=== PATIENT | male | born 1955 | race Caucasian/White ===

== ENCOUNTER 2017-12-31 05:03 | Inpatient (IN) | payer BC ==
[2017-12-19 07:43] VITALS: BMI 35.2
[~2017-12-31 05:03] MED LIST: BACITRACIN 15 GM TUBE TOPICAL OINTMENT TP ONE; BUPIVACAINE HCL/PF 0.5% (5MG/ML) 10 ML VIAL NR ONE
[2017-12-31] MEDS ORDERED: MIDAZOLAM HCL 2 MG/2 ML SINGLE DOSE VIAL ONE (07:44)
--- NOTE | 2017-12-31 08:02 | PN ---
Progress Note (short form) - Note Progress Note: NEUROSURGERY PRE-OP Symptoms unchanged from prior eval R LE symptoms R EHL/Inv 4+ B DP/PT 1+ at least For R L3-4 and L4-5 hemilaminectomies Incision marked Risks and benefits, procedure explained again BiPAP post-op
[2017-12-31] MEDS ORDERED: DEXAMETHASONE SOD PHOSPHATE 4 MG/1 ML VIAL ONE ×2 (08:04→10:12)
[2017-12-31] MEDS ORDERED: fentaNYL CITRATE 250 MCG/5 ML VIAL ONE (08:05)
[2017-12-31] MEDS ORDERED: PROPOFOL 20 ML ONE ×2 (08:06)
[2017-12-31] MEDS ORDERED: LIDOCAINE HCL/PF 2% SDV 5ML VIAL ONE (08:06)
[2017-12-31] MEDS ORDERED: ROCURONIUM BROMIDE 50 MG/5 ML VIAL ONE ×2 (08:07)
[2017-12-31] MEDS ORDERED: ceFAZolin SODIUM 1 GM VIAL ONE ×3 (08:08→20:57)
[2017-12-31] MEDS ORDERED: ceFAZolin SODIUM 1 GM VIAL IVPB ONE ×2 (08:10→14:30)
[2017-12-31] MEDS ORDERED: BACITRACIN 50,000 UNITS VIAL NR ONE (08:37)
[2017-12-31] MEDS ORDERED: THROMBIN (BOVINE) 5,000 UNIT VIAL TP ONE (08:37)
[2017-12-31] MEDS ORDERED: BACITRACIN 15 GM TUBE TOPICAL OINTMENT ONE (09:41)
[2017-12-31] MEDS ORDERED: BUPIVACAINE HCL/PF 0.5% (5MG/ML) 10 ML VIAL ONE (09:41)
[2017-12-31] MEDS ORDERED: BUPIVACAINE HCL/PF 0.5% (5MG/ML) 10 ML VIAL NR ONE (10:13)
[2017-12-31] MEDS ORDERED: NEOSTIGMINE METHYLSULFATE 0.5 MG/ML - 10 ML MDV ONE (10:13)
[2017-12-31] MEDS ORDERED: GLYCOPYRROLATE 0.2 MG/1 ML VIAL ONE (10:14)
--- NOTE | 2017-12-31 10:16 | OP ---
Operative Note - Note: Operative Date: 12/31/17 Pre-Operative Diagnosis: L4-5 > L3-4 stenosis; radiculopathy Operation: Partial R L3-4-5 hemilanectomies, medial facetectomies, foramenotomies; decompression of R L3, L4, L5 roots and thecal sax; microdissection Findings: Stenosis L4-5 > L3-4 Surgeon: Joseluis Zafar Testing Manager: Haim Means Anesthesiologist/COATING MACHINE OPERATOR HELPER: Yasmani Chapa Anesthesia: General Estimated Blood Loss (mls): 100 Operative Report Dictated: Yes
[2017-12-31] MEDS ORDERED: ONDANSETRON 4 MG/2 ML VIAL IVPUSH PRN ×2 (10:24→10:42)
[2017-12-31] MEDS ORDERED: BISACODYL 10 MG SUPP.RECT RC PRN (10:24)
[2017-12-31] MEDS ORDERED: ACETAMINOPHEN 325 MG TABLET (FP) PO PRN (10:24)
[2017-12-31] MEDS ORDERED: BACITRACIN 15 GM TUBE TOPICAL OINTMENT TP ONE (10:27)
[2017-12-31] MEDS ORDERED: diazePAM 5 MG TABLET PO SCH (10:30)
[2017-12-31] MEDS ORDERED: D5-1/2NS+20 MEQ KCL - 1,000 ML IV SCH (10:30)
[2017-12-31] MEDS ORDERED: D5-1/2NS+20 MEQ KCL - 20 MEQ/1,000 ML INFUS.BAG IV SCH (10:30)
--- NOTE | 2017-12-31 10:38 | SURG ---
Surgery [facility] General Manager Note [facility] General Manager: Haim Means PA-C Date of Service: 12/31/17 Diagnosis: L3-4 and L4-5 lumbar stenosis and radiculopathy Procedure: Partial L3-5 hemilaminectomies, medial facetectomies, decompression of L3-L4 roots and thecal sacs, microdissection I was present for the entirety of the operative procedure. For further detail, please refer to operative report.
[2017-12-31] MEDS ORDERED: PROMETHAZINE HCL 25 MG/1 ML VIAL IVPB PRN (10:42)
[2017-12-31] MEDS ORDERED: DEXAMETHASONE SOD PHOSPHATE 4 MG/1 ML VIAL IVPUSH PRN (10:42)
[2017-12-31] MEDS ORDERED: HYDROmorphone *PCA* 10MG/50ML DISP.SYRIN PCA SCH ×2 (10:45→12:27)
--- NOTE | 2017-12-31 11:08 | PN ---
Progress Note (short form) - Note Progress Note: NEUROSURGERY In PACU AF, VSS; O2 sat 99% CV- RR; Lung- CTA B; Abd- benign; Ext- no sign of DVT Motor- B LE 4+-5/5; Sensation- intact LT; DTR- intact Dressing C/D/I S/p R L3-4 and L4-5 hemilaminectomies Findings and pt condition d/w and pt IV abx ENERGY CONSERVATION TECHNICIAN for pain BiPAP, consulted Dr Anaya Tele
[2017-12-31 12:09] LABS: HEMATOCRIT 45.1 % (35.4-49); HEMOGLOBIN 14.4 GM/dL (11.7-16.9); MCH 30.3 pg (25.7-33.7); MCHC 31.9 g/dl (32.0-35.9); MEAN CELL VOLUME 95.1 fl (80-96); MEAN PLT VOLUME 9.5 fl (7.5-11.1); PLATELET COUNT 170 K/MM3 (134-434); RBC 4.74 M/mm3 (4.00-5.60); RDW 13.4 % (11.9-15.9); WHITE BLOOD COUNT 9.5 K/mm3 (4.0-10.0)
[2017-12-31 12:22] LABS: ANION GAP 5 MMOL/L (8-16); BLOOD UREA NITROGEN 16 mg/dL (7-18); CALCIUM 8.5 mg/dL (8.5-10.1); CHLORIDE 107 mmol/L (98-107); CO2 29 mmol/L (21-32); GLUCOSE,RANDOM 115 mg/dL (74-106); POTASSIUM 4.7 mmol/L (3.5-5.1); SODIUM 140 mmol/L (136-145)
--- NOTE | 2017-12-31 12:31 | CON.PULM ---
Consult Consult Specialty:: PULMONARY Referred by:: Dr. Zafar Reason for Consultation:: obstructive sleep apnea - History of Present Illness Chief Complaint: spinal stenosis History of Present Illness: 62yo male with h/o lumbar spinal stenosis, radiculopathy, obstructive sleep apnea who was admitted for an elective surgery now s/p Partial R L3-4-5 hemilanectomies, medial facetectomies, foramenotomies; decompression of R L3, L4 , L5 roots and thecal sax; microdissection. Called to see postop because of his history of DALIA. He was diagnosed about 25 years ago and he reports compliance with CPAP. His symptoms have improved with better sleep quality and less daytime somnolence. He has a full face mask. He does not know his settings. Currently without shortness of breath, cough or wheezing. No history of asthma or COPD. He is a former smoker but does not use any inhalers at home. - History Source History Provided By: Patient, Medical Record Limitations to Obtaining History: No Limitations - Past Medical History Pulmonary: Yes: Sleep Apnea - Alcohol/Substance Use Hx Alcohol Use: Yes (wine on weekends) - Smoking History Smoking history: Former smoker Have you smoked in the past 12 months: No If you are a former smoker, when did you quit?: smoked 40 years ago in school on and off Home Medications - Allergies Allergies/Adverse Reactions: Allergies Allergy/AdvReac Type Severity Reaction Status Date / Time No Known Allergies Allergy Verified 12/31/17 06:45 - Home Medications Home Medications: Ambulatory Orders Ascorbic Acid [Vitamin C] 1,000 mg PO DAILY 12/19/17 Cholecalciferol (Vitamin D3) [Vitamin D3 -] 1,000 unit PO DAILY 12/19/17 Gabapentin [Neurontin -] 300 mg PO HS 12/19/17 Ibuprofen [Motrin -] 400 mg PO PRN 12/19/17 Multivitamins [Tab-A-Vit -] 1 tab PO DAILY 12/19/17 Review of Systems - Review of Systems Constitutional: denies: Chills, Fever Eyes: denies: Recent Change in Vision HENT: denies: Nasal Congestion, Throat Pain Neck: denies: Stiffness, Tenderness Cardiovascular: denies: Chest Pain, Shortness of Breath Respiratory: denies: Cough, Hemoptysis, Wheezing Gastrointestinal: denies: Abdominal Pain, Nausea, Vomiting Genitourinary: denies: Dysuria, Hematuria Neurological: denies: Dizziness, Headache Endocrine: denies: Unexplained Weight Loss Physical Exam Vital Sings: Vital Signs Temperature 97.9 F 12/31/17 10:36 Pulse Rate 67 12/31/17 12:10 Respiratory Rate 18 12/31/17 12:10 Blood Pressure 125/73 12/31/17 12:10 O2 Sat by Pulse Oximetry (%) 98 12/31/17 12:10 Constitutional: Yes: Calm Eyes: Yes: Conjunctiva Clear, EOM Intact HENT: Yes: Atraumatic, Normocephalic Neck: Yes: Supple, Trachea Midline Cardiovascular: Yes: Regular Rate and Rhythm Respiratory: Yes: Regular, Diminished (decreased breath sounds at the bases) ...Clubbing: No Gastrointestinal: Yes: Normal Bowel Sounds, Soft. No: Tenderness Edema: No Neurological: Yes: Alert, Oriented Labs: CBC, BMP 12/31/17 11:45 12/31/17 11:45 Problem List - Problems (1) Lumbar spinal stenosis Code(s): M48.061 - SPINAL STENOSIS, LUMBAR REGION WITHOUT NEUROGENIC FLY (2) Obstructive sleep apnea Code(s): G47.33 - OBSTRUCTIVE SLEEP APNEA (ADULT) (PEDIATRIC) Assessment/Plan Lumbar Spinal Stenosis/Radiculopathy s/p Partial R L3-4-5 hemilanectomies/medial facetectomies/foramenotomies s/p Decompression of R L3, L4, L5 roots and thecal sax; microdissection Obstructive Sleep Apnea - pt does not know his settings but will start with CPAP 8cm H20 and titrate - pain control - incentive spirometry - DVT prophylaxis Thank you for this consult Shaun Anaya MD
[2017-12-31] MEDS: CEFAZOLIN 1 GM in DEXTROSE 5%-WATER - 50 ML IVPB SCH ×2 (17:19→22:04)
[2017-12-31] MEDS ORDERED: PT OWN MED DRAWER 7, Y5N ONE (18:53)
--- NOTE | 2017-12-31 19:44 | OP ---
DATE OF OPERATION: 12/31/2017 PREOPERATIVE DIAGNOSIS: Lumbar spinal stenosis with lateral recess and foraminal stenosis L4-L5 > L3-4 with right lower extremity radiculopathy. POSTOPERATIVE DIAGNOSIS: Lumbar spinal stenosis with lateral recess and foraminal stenosis L4-L5 > L3-4 with right lower extremity radiculopathy. ATTENDING SURGEON: Joseluis Zafar MD DECORATING CONSULTANT: STEVIE Stallings ANESTHESIA: General endotracheal. ANESTHESIOLOGIST: Yasmani Chapa MD ESTIMATED BLOOD LOSS: 100 mL. PROCEDURES: 1. Partial right L3, L4, and L5 laminectomies including medial facetectomy and foraminotomies at right L3-L4 and L4-L5 for decompression of thecal sac and right L3, L4, and L5 nerve roots. 2. Microsurgical dissection with operating microscope and microsurgical technique ([id number]). FINDINGS: 1. L4-L5 stenosis lateral recess and neural foramen greater than L3-L4. 2. Sensitive right-sided roots. INDICATIONS: The patient is a 62-year-old male with intractable lower back pain and right lower extremity radiculopathy. Because of intractable symptoms and failure of conservative treatment, he is here for right L3-L4 and L4-L5 decompression. The risks of procedure include, but are not limited to, bleeding, infection, dural tear with CSF leak, neurological injury, increase thromboembolic risk, and risks of general anesthesia. The patient understands the indications for the procedure, procedure in detail, risks and benefits, and alternatives for treatment of his lumbar condition, and wishes to proceed. No guarantees are given for a favorable outcome. PROCEDURE IN DETAIL: After the patient was taken to the operating room, he was placed in a supine position. After general anesthesia was induced and appropriate lines were placed, he was turned prone position on a Jermaine frame. All pressure points were checked and padded. Lumbar region was cleaned with alcohol and prepped with Betadine. A localizing x-ray was taken with the spinal needle at L4-L5 interspinous space. After position was verified, approximately a 2.5- to 3-inch incision was opened in the midline from L3 to the top of L5. Subperiosteal dissection was carried out on the right side only with periosteal elevator and monopolar electrocautery. A very deep exposure was encountered. The L3-L4 and L4-L5 facet joints were skeletonized and preserved. Two self-retaining retractors were inserted. A localizing x-ray was obtained with a clamp on the bottom of L3 lamina. After position was verified, partial right L3-L4 and L4-L5 laminectomy was carried out with high-speed pneumatic drill, angled curette, and Kerrison rongeur. Once again, the procedure was difficult because of the depth of exposure. Medial facetectomy was also carried out with angled curette and Kerrison rongeur as well as high-speed pneumatic drill. The underlying ligament was thickened at both L3- L4 and L4-L5, and it was resected with angled curette and Kerrison rongeur. The dura was under some pressure, and the nerve root was somewhat irritable to any bipolar electrocautery stimulation. The microscope was used for this portion of the procedure for both illumination and magnification. Microsurgical technique was utilized after hemostasis was obtained with bipolar electrocautery and thrombin sterile powder Gelfoam. The L3, L4, and L5 nerve roots were all decompressed in the neural foramen levels at L3-L4 and L4-L5 on the right. A dental tool was used to palpate the epidural space in the neural foramen after decompression was completed. The canal and neural foramen were felt to be open at these levels. Hemostasis was once again obtained with bipolar electrocautery, and a Valsalva maneuver was performed, and there was no CSF leak. Then 10 mL of 0.5% Marcaine was injected in the paraspinal muscles at this time. The wounds were washed and irrigated with antibiotic irrigation. At this point, the dorsal lumbar paraspinal musculature hemostasis was obtained with bipolar electrocautery. A layer of Surgicel was laid in the epidural space at L3-L4 and L4-L5 to cover the nerve roots and the dura. Dorsal lumbar fascia was then closed with 0 Vicryl suture. Subcutaneous fascia was closed with 3-0 Vicryl suture, and the skin was closed with 4-0 Vicryl running subcuticular suture. Steri- Strips and a sterile occlusive dressing was applied. The patient tolerated the procedure well and was moving bilateral lower extremities well. The patient received one dose of 2 g of Ancef prior to the incision. He was turned back supine and extubated. All needle and lap counts were correct. OR time-out procedure was followed. Vini [id number] MTDD
[2017-12-31] MEDS ORDERED: DEXTROSE 5%-WATER - 50 ML IVPB ONE (20:58)
[2017-12-31] MEDS ORDERED: GABAPENTIN 300 MG CAPSULE (FP) PO SCH (22:00)
[2017-12-31] MEDS: DOCUSATE SODIUM 100 MG CAPSULE (FP) PO SCH (22:05)
[2018-01-01] MEDS ORDERED: DEXTROSE 5%-WATER - 50 ML IVPB ONE (02:52)
[2018-01-01] MEDS ORDERED: ceFAZolin SODIUM 1 GM VIAL ONE (02:52)
[2018-01-01] MEDS: CEFAZOLIN 1 GM in DEXTROSE 5%-WATER - 50 ML IVPB SCH (03:15)
[2018-01-01] MEDS ORDERED: diazePAM 5 MG TABLET PO SCH (06:00)
[2018-01-01] MEDS: DOCUSATE SODIUM 100 MG CAPSULE (FP) PO SCH (06:20)
--- NOTE | 2018-01-01 07:50 | PN ---
Progress Note (short form) - Note Progress Note: NEUROSURGERY POD #1 Incisional pain Less R sciatica Had decent sleep though felt it was noisy CV- RR; Lungs- CTA; Abd- benign; Ext- no sign of DVT R EHL/Inv 4+-5, improved Wound with mild sangrenous drainage on bottom- dressing changed Stable neurologically OOB with PT Adv diet Instructions for wound, aftercare, f/u given
[2018-01-01] MEDS ORDERED: MULTIVITAMINS (DAILY MVI) TABLET (FP) PO SCH (10:00)
[2018-01-01 10:11] VITALS: TEMP 98
[2018-01-01] MEDS ORDERED: PT OWN MED DRAWER 7, Y5N ONE (11:13)
--- NOTE | 2018-01-01 11:15 | PN ---
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 - Current Medication List Current Medications: Active Medications Acetaminophen (Tylenol -) 650 mg PO Q6H PRN PRN Reason: FEVER Bisacodyl (Dulcolax Suppository -) 10 mg RC DAILY PRN PRN Reason: CONSTIPATION Diazepam (Valium -) 5 mg PO TID [facility] Last Admin: 01/01/18 06:20 Dose: 5 mg Docusate Sodium (Colace -) 100 mg PO TID [facility] Last Admin: 01/01/18 06:20 Dose: 100 mg Gabapentin (Neurontin -) 300 mg PO HS [facility] Last Admin: 12/31/17 22:06 Dose: 300 mg Hydromorphone HCl (Dilaudid Hog Trader -) 10 mg SCREW MACHINE OPERATOR SCREW MACHINE OPERATOR [facility]; Protocol Stop: 01/07/18 10:42 Potassium Chloride/Dextrose/Sod Cl (D5-1/2ns+20 Meq Kcl -) 20 meq in 1,000 mls @ 100 mls/hr IV ASDIR [facility] Last Admin: 12/31/17 11:10 Dose: 400 mls Potassium Chloride/Dextrose/Sod Cl (D5-1/2ns+20 Meq Kcl -) 1,000 mls @ 42 mls/ hr IV ASDIR [facility] Multivitamins/Minerals/Vitamin C (Tab-A-Vit -) 1 tab PO DAILY [facility] Last Admin: 01/01/18 10:19 Dose: 1 tab Ondansetron HCl (Zofran Injection) 4 mg IVPUSH Q6H PRN PRN Reason: NAUSEA AND/OR VOMITING - Objective Vital Signs: Vital Signs Temperature 98 F 01/01/18 10:00 Pulse Rate 74 01/01/18 10:00 Respiratory Rate 18 01/01/18 10:00 Blood Pressure 114/74 01/01/18 10:00 O2 Sat by Pulse Oximetry (%) 98 01/01/18 02:56 Constitutional: Yes: Well Nourished Cardiovascular: Yes: WNL Respiratory: Yes: WNL Gastrointestinal: Yes: WNL Labs: CBC, BMP 12/31/17 11:45 12/31/17 11:45 Assessment/Plan Patient pain controlled, tolerating PO no adverse effect of anesthetic, 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
[2018-01-01] MEDS ORDERED: oxyCODONE HCL 5 MG TABLET PO PRN ×2 (11:16)
[2018-01-01 11:53] VITALS: BP 120/70; PULSE 78
== END 2018-01-01 14:52 | disposition home or self-care (01) | DRG 517 ==
LOC: JSAMEDAYSX 05:03 → EDSTATUS 08:00 → J4W 15:00
PROVIDERS: ADMIT Neurological Surgery; ATTEND Neurological Surgery
PROC: 01NB0ZZ Release Lumbar Nerve, Open Approach (ICD-10-PCS; principal; 2017-12-31 08:00)
DX: M48.061 Spinal stenosis, lumbar region without neurogenic claudication (principal); G47.33 Obstructive sleep apnea (adult) (pediatric)
CPT/HCPCS: 36415; 72100-TC-FY; 80048; 85027; 86850; 86900; 86901; 94660; 94760; 97116-GP; 97161-GP